=== PATIENT | female | born 2000 | race Caucasian/White ===

== ENCOUNTER 2020-04-06 12:36 | Outpatient (CLI) | payer OTHER, SELFPAY ==
[2020-04-06 13:19] LABS: Basophils Percent Auto 0.2 % (0.2-1.2); Eosinophils Percent Auto 0.7 % (0-4.4); Hemoglobin 13.9 g/dL (12.0-15.0); Immature Granulocyte Absolute 0.01 K/mm3 (0.00-0.031); Immature Granulocyte Percent A 0.2 % (0-0.5); Lymphocytes Absolute Auto 1.96 K/mm3 (0.9-3.2); Lymphocytes Percent Auto 33.1 % (18.3-44.2); Mean Corpuscular HGB Conc 33.1 g/dl (32-36); Mean Corpuscular Hemoglobin 27.6 pg (26-34); Mean Corpuscular Volume 83.3 fl (80-100); Mean Platelet Volume 9.8 fl (7.4-10.4); Monocytes Absolute Auto 0.4 K/mm3 (0.1-0.6); Monocytes Percent Auto 7.1 % (2.6-8.5); Neutrophils Absolute Auto 3.5 K/mm3 (1.3-6.7); Neutrophils Percent Auto 58.7 % (45.5-73.1); Platelet Count Result 347 k/mm3 (150-375); Red Blood Count 5.04 M/mm3 (4.2-5.4); Red Cell Distribution Width 12.6 % (11.5-14.5); White Blood Count 5.9 K/mm3 (4.5-10.0)
[2020-04-06 13:28] LABS: Alanine Aminotransferase 21 U/L (4-35); Albumin Level 4.6 g/dL (3.5-5.1); Alkaline Phosphatase 116 U/L (38-126); Aspartate Amino Transferase 25 U/L (14-36); Bilirubin,Total 0.6 mg/dL (0.2-1.3); Blood Urea Nitrogen 8 mg/dL (7-17); Calcium 9.4 mg/dL (8.4-10.2); Carbon Dioxide 23 mmol/L (22-30); Chloride 105 mmol/L (98-107); Cholesterol 177 mg/dL (0-200); Estimated Glomerular Filt Rate > 60; Glucose 91 mg/dL (65-105); HDL Direct 45 mg/dL; Sodium 139 mmol/L (137-145); Triglycerides 86 mg/dL (<150)
[2020-04-06 13:39] LABS: LDL Cholesterol Direct 111 mg/dL
== END 2020-04-06 12:37 | disposition home or self-care (01) ==
DX: R63.5 Abnormal weight gain (principal); R53.83 Other fatigue
CPT/HCPCS: 36415; 80053; 80061; 84443; 85025

== ENCOUNTER 2021-05-30 16:11 | Outpatient (CLI) | payer OTHER, SELFPAY ==
--- NOTE | ~2021-05-30 | XR_ITS ---
XR lumbar spine 2-3V 05/30/2021 16:50 Indication: Low back pain Procedure: 3 views lumbar spine Comparison: 03/06/2016 Findings: Mild dextrocurvature of the lumbar spine. Vertebral body heights are maintained. No fractur e, subluxation or dislocation. No evidence for spondylolisthesis Impression: 1: Mild dextrocurvature of the lumbar spine. Reviewed, dictated and finalized at location A. Impression: 1: Mild dextrocurvature of the lumbar spine.
== END 2021-05-30 16:12 | disposition home or self-care (01) ==
LOC: ANHIMG 16:25
DX: M54.16 Radiculopathy, lumbar region (principal); M99.03 Segmental and somatic dysfunction of lumbar region
CPT/HCPCS: 72100

== ENCOUNTER 2021-06-17 11:44 | Outpatient (CLI) | payer OTHER, SELFPAY ==
[2021-06-17 12:15] LABS: Hematocrit 39.9 % (37.0-47.0); Hemoglobin 13.2 g/dL (12.0-15.0); Mean Corpuscular HGB Conc 33.1 g/dl (32-36); Mean Corpuscular Hemoglobin 27.7 pg (26-34); Mean Corpuscular Volume 83.6 fl (80-100); Mean Platelet Volume 9.7 fl (7.4-10.4); Platelet Count Result 405 k/mm3 (150-375); Red Blood Count 4.77 M/mm3 (4.2-5.4); White Blood Count 7.4 K/mm3 (4.5-10.0)
[2021-06-17 13:22] LABS: Free T4 Free Thyroxine 1.05 ng/mL (0.78-2.19); Vitamin D 25 Hydroxy 51.6 ng/mL
== END 2021-06-17 11:45 | disposition home or self-care (01) ==
LOC: ANHLAB 11:46
PROVIDERS: Visit Provider Obstetrics & Gynecology
DX: R53.83 Other fatigue (principal)
CPT/HCPCS: 36415; 82306; 82607; 84439; 84443; 85027

== ENCOUNTER 2021-07-29 12:08 | Emergency (ER) | payer OTHER, SELFPAY ==
[2021-07-29 12:22] VITALS: BP 129/75; PULSE 97; RESP 18; TEMP 36.3; O2SAT 100
--- NOTE | 2021-07-29 12:37 | ED.URI ---
HPI - URI/Sore Throat General Chief Complaint: Upper Respiratory Infection Stated Complaint: Sore Throat Time Seen by Provider: 07/29/21 12:37 Source: patient and RN notes reviewed Mode of arrival: ambulatory Limitations: no limitations History of Present Illness HPI Narrative: 21-year-old female presents with concern for scratchy throat, swollen tonsils, sinus pressure, waxy ears, cough. Reports she has been vaccinated for Covid. She denies shortness of breath, nausea, vomiting, diarrhea, fever, bodies, chills, sweats. Reports she has been taking DayQuil and NyQuil. Denies known sick contacts. MD elicited complaint: cough and sore throat Related Data Home Medications Medication Instructions Recorded Confirmed norgestimate-ethinyl estradiol 1 tablet PO DAILY 07/29/21 07/29/21 [Estarylla] Allergies Allergy/AdvReac Type Severity Reaction Status Date / Time No Known Allergies Allergy Verified 07/29/21 12:20 Review of Systems Review of Systems: CONSTITUTIONAL: Denies malaise, chills, sweats, or fever. EYES: Denies visual changes, redness, or discharge. ENT: Reports rhinorrhea, congestion, otalgia and sore throat. CARDIOVASCULAR: Denies chest pain, palpitations, or edema. RESPIRATORY: Reports cough. Denies dyspnea. GASTROINTESTINAL: Denies abdominal pain, nausea, vomiting, diarrhea SKIN: Denies rash or itching. MUSCULOSKELETAL: Denies myalgia. NEUROLOGIC: Denies headache. All systems reviewed & are unremarkable except as noted in HPI and below PMFSH Comments At time of signature, agree with nursing past medical, surgical, social and family history. There is no relevant family history pertinent to the presenting complaint Exam Narrative: GENERAL: Well-appearing, well-nourished, and in no acute distress. HEAD: Normocephalic EYES: PERRLA, conjunctivae clear ENT: Nares clear, clear discharge. Mucous membranes moist. TM pearly river with dull light reflex bilaterally; no tragal tenderness. Oropharynx not erythematous without lesions. Tonsils not enlarged and without exudate, no drooling, no hoarseness, no trismus, uvula midline. NECK: Supple. No lymphadenopathy CHEST: Clear to auscultation, breath sounds equal. No wheezing, rhonchi, rales, or stridor. No respiratory distress, speaks in full sentences. HEART: Regular rate and rhythm. No murmur heard. SKIN: Warm, dry, no rash. NEURO: Alert and oriented x3. PSYCH: Normal mood and affect Course Course Emergency Course: Patient is aware of diagnosis, understands and agrees to treatment plan. Anticipatory guidance given. Patient agrees to follow-up as directed and is aware of reasons to seek care at the emergency department. Portions of this record may have been created with voice recognition software Vital Signs Vital signs: Vital Signs Temperature 97.4 F L 07/29/21 12:22 Pulse Rate 97 07/29/21 12:22 Respiratory Rate 18 07/29/21 12:22 Blood Pressure 129/75 07/29/21 12:22 Pulse Oximetry 100 07/29/21 12:22 Temperature 97.4 F L 07/29/21 12:22 Pulse Rate 97 07/29/21 12:22 Respiratory Rate 18 07/29/21 12:22 Blood Pressure 129/75 07/29/21 12:22 Pulse Oximetry 100 07/29/21 12:22 Reviewed. MDM - URI/Sore Throat MDM Narrative Medical decision making narrative: Differential diagnosis considered: [place] virus, strep pharyngitis, allergic rhinitis, upper respiratory tract infection, sinusitis, rhinosinusitis, nasopharyngitis. viral pharyngitis, otitis media, otitis externa, pneumonia, bronchitis, viral cough syndrome, viral syndrome, and influenza. Exam findings show no acute concerns or changes; patient is non-toxic appearing and is in no distress. Patient is appropriate for outpatient treatment and follow-up. Lab Data Attestation: I reviewed the patient's lab results. Critical Care Time Critical Care Time Critical Care Time: No Discharge Plan Discharge Clinical Impression: Upper respiratory infection Qualifiers: URI type: unspe
== END 2021-07-29 12:50 | disposition home or self-care (01) ==
PROVIDERS: Emergency Provider Nurse Practitioner
DX: J06.9 Acute upper respiratory infection, unspecified (principal)
CPT/HCPCS: 87081; 87880; 99213; G0463

== ENCOUNTER 2021-10-17 15:35 | Outpatient (CLI) | payer OTHER, SELFPAY ==
--- NOTE | ~2021-10-17 | CT_ITS ---
EXAMINATION: CT brain wo con DATE: 10/17/2021 15:57 INDICATION: Chronic headache. Tinnitus. Numbness of both arms for 6 months. TECHNIQUE: Computed tomography (CT) of the head was performed without intravenous contrast. The mA wa s adjusted according to patient size. Iterative reconstruction technique was employed. Exam dose: 60 5.33 mGy-cm total exam DLP. COMPARISON: None FINDINGS: No intracranial mass lesion or hemorrhage or cerebrovascular accident. No midline shift or mass effect. Normal river-white matter differentiation. Normal ventricular size. No subdural or epidur al hematoma. No orbital mass lesion. No fracture or bone destruction of the cranial vault. Included mastoid air cells and paranasal sinuse s are normally developed and aerated. IMPRESSION: Normal examination Reviewed, dictated and finalized at [facility]. Reviewed, dictated and finalized at location A. TING MACHINE OPERATOR IMPRESSION: Normal examination
== END 2021-10-17 15:36 | disposition home or self-care (01) ==
LOC: ANHIMG 15:38
DX: R51.9 Headache, unspecified (principal)
CPT/HCPCS: 70450

== ENCOUNTER 2022-02-02 12:50 | Outpatient (CLI) | payer OTHER, SELFPAY ==
--- NOTE | ~2022-02-02 | MR_ITS ---
EXAMINATION: MR brain IAC wo/w con DATE: 02/02/2022 14:17 INDICATION: Demyelinating disease of central nervous system. TECHNIQUE: Magnetic resonance imaging (MRI) of the brain, brainstem, and internal auditory canals was performed without and with 20 mL MultiHance intravenous contrast. COMPARISON: Head CT 10/17/2021 FINDINGS: There is no intracranial hemorrhage, acute infarction, or abnormal intracranial mass lesion . The ventricles are normal in size. Freeman cisterna magna is noted. The internal auditory canals and i nner and middle ears are normal. The mastoid air cells are normal. The paranasal sinuses are clear. T he orbits are normal. IMPRESSION: 1. No evidence of demyelinating disease. Reviewed, dictated and finalized at location A.
[2022-02-02 13:34] LABS: Estimated Glomerular Filt Rate > 60
== END 2022-02-02 12:51 | disposition home or self-care (01) ==
PROVIDERS: Visit Provider Psychiatry & Neurology Neurology
DX: G37.9 Demyelinating disease of central nervous system, unspecified (principal)
CPT/HCPCS: 70553; A9577

== ENCOUNTER 2022-03-23 08:03 | Outpatient (CLI) | payer OTHER, SELFPAY ==
--- NOTE | ~2022-03-23 | MR_ITS ---
EXAMINATION: MR cervical spine wo/w con DATE: 03/23/2022 09:11 INDICATION: Demyelinating disease. TECHNIQUE: Magnetic resonance imaging (MRI) of the cervical spine was performed without and with 20 m L MultiHance intravenous contrast. COMPARISON: None FINDINGS: Bone alignment is normal. Vertebral body heights and intervertebral disc heights are normal . The spinal cord signal intensity is normal. The following disc levels are specifically discussed: C2-C3: The disc does not extend beyond the endplate margin. There is no uncovertebral joint osteoarth ritis. There is no facet joint osteoarthritis. There is no neural foraminal stenosis. There is no nathan tral canal stenosis. C3-C4: The disc does not extend beyond the endplate margin. There is mild bilateral uncovertebral darryn nt osteoarthritis. There is mild bilateral facet joint osteoarthritis. There is mild right neural for aminal stenosis. There is no central canal stenosis. C4-C5: The disc does not extend beyond the endplate margin. There is no uncovertebral joint osteoarth ritis. There is no facet joint osteoarthritis. There is no neural foraminal stenosis. There is no nathan tral canal stenosis. C5-C6: The disc does not extend beyond the endplate margin. There is no uncovertebral joint osteoarth ritis. There is no facet joint osteoarthritis. There is no neural foraminal stenosis. There is no nathan tral canal stenosis. C6-C7: There is a central protrusion. There is no uncovertebral joint osteoarthritis. There is no fac et joint osteoarthritis. There is no neural foraminal stenosis. There is no central canal stenosis. C7-T1: The disc does not extend beyond the endplate margin. There is no uncovertebral joint osteoarth ritis. There is moderate bilateral facet joint osteoarthritis. There is no neural foraminal stenosis. There is no central canal stenosis. IMPRESSION: 1. Normal spinal cord. 2. Mild cervical spondylosis. Reviewed, dictated and finalized at location A.
[2022-03-23 08:41] LABS: Estimated Glomerular Filt Rate > 60
== END 2022-03-23 08:04 | disposition home or self-care (01) ==
LOC: ANHIMG 08:04
PROVIDERS: Visit Provider Psychiatry & Neurology Neurology
DX: R20.0 Anesthesia of skin (principal); M47.813 Spondylosis without myelopathy or radiculopathy, cervicothoracic region; M48.03 Spinal stenosis, cervicothoracic region
CPT/HCPCS: 72156; A9577

== ENCOUNTER 2022-06-27 16:17 | Outpatient (CLI) | payer OTHER, SELFPAY ==
--- NOTE | ~2022-06-27 | US_ITS ---
EXAMINATION: US pelvic complete w TV DATE: 06/27/2022 17:00 INDICATION: ABN UTERINE BLEEDING TECHNIQUE: Multiple transabdominal and endovaginal sonographic images of the pelvis were obtained. COMPARISON: None. FINDINGS: Exam limited by bowel gas and body habitus. Uterus: 7.2 x 3.6 x 2.0 cm. Nabothian cysts. Endometrial complex measures 3 mm. Right Ovary: 2.8 x 1.7 x 2.0 cm. Vascular flow is present. Left Ovary: Not visualized. There is no free fluid in the pelvis. IMPRESSION: Left ovary not visualized. Otherwise normal pelvic ultrasound findings. Reviewed, dictated and finalized at location K.
== END 2022-06-27 16:18 | disposition home or self-care (01) ==
LOC: ANHIMG 16:21
PROVIDERS: Visit Provider Advanced Practice Midwife
DX: N93.9 Abnormal uterine and vaginal bleeding, unspecified (principal)
CPT/HCPCS: 76830; 76856

== ENCOUNTER 2022-08-12 09:31 | Outpatient (CLI) | payer OTHER, SELFPAY ==
[2022-08-12 11:08] LABS: Free T4 Free Thyroxine 1.23 ng/mL (0.78-2.19)
== END 2022-08-12 09:32 | disposition home or self-care (01) ==
LOC: ANHLAB 09:35
PROVIDERS: Visit Provider Advanced Practice Midwife
DX: E03.9 Hypothyroidism, unspecified (principal)
CPT/HCPCS: 36415; 84439; 84443

== ENCOUNTER 2022-10-20 12:24 | Outpatient (CLI) | payer MEDICAID, SELFPAY ==
[2022-10-20 13:20] LABS: Alanine Aminotransferase 19 U/L (6-35); Albumin Level 4.4 g/dL (3.5-5.1); Alkaline Phosphatase 69 U/L (38-126); Anion Gap 5 mmol/L (8-16); Aspartate Amino Transferase 17 U/L (14-36); Bilirubin,Total 0.4 mg/dL (0.2-1.3); Blood Urea Nitrogen 9 mg/dL (7-17); Calcium 8.8 mg/dL (8.4-10.2); Carbon Dioxide 26 mmol/L (22-30); Chloride 105 mmol/L (98-107); Cholesterol 177 mg/dL (0-200); Estimated Glomerular Filt Rate > 60; Glucose 99 mg/dL (65-110); HDL Direct 43 mg/dL; Potassium 3.6 mmol/L (3.4-5.0); Sodium 136 mmol/L (137-145); Triglycerides 200 mg/dL (<150)
[2022-10-20 13:31] LABS: LDL Cholesterol Direct 88 mg/dL
== END 2022-10-20 12:25 | disposition home or self-care (01) ==
LOC: ANHLAB 12:28
PROVIDERS: PCP Physician Assistant; Visit Provider Physician Assistant
DX: Z13.220 Encounter for screening for lipoid disorders (principal)
CPT/HCPCS: 36415; 80053; 80061